=== PATIENT | female | born 1995 | race Caucasian/White ===

== ENCOUNTER 2018-06-15 19:12 | Emergency (ER) | payer OTHER ==
[~2018-06-15] VITALS: Ht 160 cm; Wt 54.4 kg
[2018-06-15] MEDS ORDERED: OBSTETRIX DHA1 EACH (19:43)
== END 2018-06-15 23:00 | disposition home or self-care (01) ==
LOC: ER 19:12
DX: K52.9 Noninfective gastroenteritis and colitis, unspecified (principal)

== ENCOUNTER → 2018-06-16 | Emergency (ER) | payer OTHER ==
[~2018-06-16] VITALS: Ht 157.5 cm; Wt 54.4 kg
[~2018-06-16] MED LIST: OBSTETRIX DHA1 EACH
== END | disposition home or self-care (01) ==
LOC: ER 19:04
DX: K52.9 Noninfective gastroenteritis and colitis, unspecified (principal); E86.0 Dehydration

== ENCOUNTER 2018-09-25 15:50 | Emergency (ER) | payer OTHER ==
[~2018-09-25] VITALS: Ht 157.5 cm; Wt 59.0 kg
== END 2018-09-25 20:53 | disposition home or self-care (01) ==
LOC: ER 15:50
DX: R42 Dizziness and giddiness (principal)

== ENCOUNTER 2018-11-23 12:58 | Outpatient (CLI) | payer OTHER | END 2018-11-24 15:30 | disposition home or self-care (01) | LOC: OBS/DEL 12:58 | DX: O26.893 Other specified pregnancy related conditions, third trimester (principal); N20.0 Calculus of kidney; Z34.03 Encounter for supervision of normal first pregnancy, third trimester ==